=== PATIENT | male | born 1965 | race Caucasian/White ===

== ENCOUNTER 2018-06-14 02:53 | Emergency (ER) | payer BC ==
[2018-06-14] MEDS ORDERED: METHYLPREDNISOLONE 125 MG INJ ONE (03:25)
[2018-06-14] MEDS ORDERED: FAMOTIDINE 20 MG/2 ML VIAL IV ONE (03:25)
--- NOTE | 2018-06-14 06:07 | ER ---
Nurse's Notes [facility] Name: Martin Sneed Age: 52 yrs Sex: Male : 1965 Arrival Date: 06/14/2018 Time: 02:54 Bed 19 Private MD: Breezy Robbins Diagnosis: Angioneurotic edema Presentation: 06/14 03:05 Presenting complaint: Patient states: started this morning the half of my tongue got rr5 swollen and now my entire tongue got swell. no but I'm worried for the swelling will goes down. Transition of care: patient was not received from another setting of care. Onset: The symptoms/episode began/occurred gradually, this morning. Anaphylaxis evaluation, no signs or symptoms of anaphylaxis were noted. Onset of symptoms was June 13, 2018. Risk Assessment: Do you want to hurt yourself or someone else? Patient reports no desire to harm self or others. Initial Sepsis Screen: Does the patient meet any 2 criteria? No. Patient's initial sepsis screen is negative. Does the patient have a suspected source of infection? No. Patient's initial sepsis screen is negative. Care prior to arrival: Medication(s) given: benadryl. 03:05 Method Of Arrival: Ambulatory rr5 03:05 Acuity: MICHAEL 3 rr5 Triage Assessment: 03:09 General: Appears in no apparent distress. uncomfortable, Behavior is calm, cooperative, rr5 appropriate for age. Pain: Denies pain. EENT: swollen tongue. Historical: - Allergies: 03:09 No Known Allergies; rr5 - Home Meds: 03:09 lisinopril 20 mg oral tab [Active]; rr5 - PMHx: 03:09 Hypertension; rr5 - PSHx: 03:09 None; rr5 - Immunization history:: Adult Immunizations up to date. - Social history:: Smoking status: Patient/guardian denies using tobacco, Patient uses alcohol, occasionally. Patient/guardian denies using street drugs. - Ebola Screening: : Patient negative for fever greater than or equal to 101.5 degrees Fahrenheit, and additional compatible Ebola Virus Disease symptoms Patient denies exposure to infectious person Patient denies travel to an Ebola-affected area in the 21 days before illness onset. Screenin:10 Abuse screen: Denies threats or abuse. Denies injuries from another. Nutritional rr5 screening: No deficits noted. Tuberculosis screening: No symptoms or risk factors identified. Fall Risk None identified. Total Dorsey Fall Scale indicates No Risk (0-24 pts). Assessment: 03:05 General: Appears in no apparent distress. comfortable, Behavior is calm, cooperative, rr5 appropriate for age. Pain: Denies pain. Neuro: Level of Consciousness is awake, alert, obeys commands, Oriented to person, place, time, situation, Appropriate for age. Cardiovascular: Capillary refill < 3 seconds Patient's skin is warm and dry. Respiratory: Airway is patent Respiratory effort is even, unlabored. GI: No signs and/or symptoms were reported involving the gastrointestinal system. : No signs and/or symptoms were reported regarding the genitourinary system. EENT: swollen tongue. 03:05 Derm: Skin is intact, Skin temperature is warm. Musculoskeletal: No signs and/or rr5 symptoms reported regarding the musculoskeletal system. 03:05 Respiratory: Breath sounds are clear. rr5 03:17 Reassessment: complaints of feeling light headed after seeing the IV insertion, the rr5 said he is scared to needles. repositioned on bed comfortably, comfort measure done,vital signs taken and recorded. 03:45 Reassessment: Patient appears in no apparent distress at this time. Patient is alert, rr5 oriented x 3, equal unlabored respirations, skin warm/dry/pink. Patient states feeling better. Patient states symptoms have improved. 04:22 Reassessment: Patient appears in no apparent distress at this time. Patient is alert, rr5 oriented x 3, equal unlabored respirations, skin warm/dry/pink. asleep on bed comfortably without complaints made. 05:50 Reassessment: Patient appears in no apparent distress at this time. Patient is alert, rr5 oriented x 3, equal unlabored respirations, skin warm/dry/pink. much better compare before. Patient states feeling better. Patient states symptoms have improved. 06:10 Reassessment: Patient appears in no apparent distress at this time. discharge rr5 instruction given and explained without complaints made. Patient states feeling better. Patient states symptoms have improved. Vital Signs: 03:05 BP 149 / 97; Pulse 103; Resp 18; Temp 99.2; Pulse Ox 96% ; Weight 102.06 kg; Height 6 rr5 ft. (182.88 cm); Pain 0/10; 03:15 BP 112 / 84; Pulse 84; Resp 17; Pulse Ox 98% ; rr5 03:17 BP 105 / 75; Pulse 89; Resp 17; Pulse Ox 99% ; rr5 03:30 BP 121 / 75; Pulse 89; Resp 17; Pulse Ox 100% ; rr5 03:45 BP 122 / 87; Pulse 82; Resp 17; Pulse Ox 98% ; rr5 04:20 BP 133 / 80; Pulse 80; Resp 17; Pulse Ox 96% ; rr5 05:00 BP 125 / 80; Pulse 92; Resp 17; Pulse Ox 98% ; rr5 06:00 BP 141 / 75; Pulse 86; Resp 17; Pulse Ox 99% ; rr5 03:05 Body Mass Index 30.52 (102.06 kg, 182.88 cm) rr5 03:17 complaints of light headed rr5 ED Course: 02:54 Patient arrived in ED. am2 02:54 Breezy Robbins MD is Private Physician. am2 02:56 Gonzalo López MD is Attending Physician. gs 03:00 Patient has correct armband on for positive identification. Placed in gown. Bed in low rr5 position. Call light in reach. Side rails up X2. 03:04 Hilario Melgar RN is Primary Nurse. rr5 03:05 Arm band placed on right wrist. Patient placed in an exam room, on a stretcher, on rr5 pulse oximetry. 03:08 Triage completed. rr5 03:15 Inserted saline lock: 20 gauge in right hand, using aseptic technique. rr5 06:15 No provider procedures requiring assistance completed. IV discontinued, intact, rr5 bleeding controlled, No redness/swelling at site. Pressure dressing applied. Administered Medications: 03:18 Drug: SOLU-Medrol 125 mg Route: IVP; Site: right hand; rr5 06:10 Follow up: Response: No adverse reaction rr5 03:20 Drug: Pepcid 20 mg Route: IVP; Site: right hand; rr5 06:10 Follow up: Response: No adverse reaction rr5 Outcome: 06:07 Discharge ordered by . gs 06:15 Discharged to home ambulatory, with family. rr5 06:15 Condition: stable 06:15 Discharge instructions given to patient, family, Instructed on discharge instructions, follow up and referral plans. medication usage, Demonstrated understanding of instructions, follow-up care, medications, Prescriptions given X 1. 06:15 Patient left the ED. rr5 Signatures: Ophelia Otero Gregory, MD MD gs Roque, Raymond RN RN rr5
--- NOTE | 2018-06-14 06:07 | EDPHYS ---
Physician Documentation [facility] Name: Martin Sneed Age: 52 yrs Sex: Male : 1965 Arrival Date: 06/14/2018 Time: 02:54 Bed 19 Private MD: Breezy Robbins ED Physician Gonzalo López HPI: 06/14 03:30 This 52 yrs old Male presents to ER via Ambulatory with complaints of gs Allergic Reaction, Swelling Of Tongue. 04:28 The patient presents with swelling of the tongue. Onset: The symptoms/episode gs began/occurred 3 hour(s) ago. Associated signs and symptoms: Pertinent negatives: chest pain, dysphagia, shortness of breath. Possible causes: Severity of symptoms: At their worst the symptoms were moderate in the emergency department the symptoms are unchanged. The patient has experienced similar episodes in the past, several times. The patient has not recently seen a physician. Historical: - Allergies: 03:09 No Known Allergies; rr5 - Home Meds: 03:09 lisinopril 20 mg oral tab [Active]; rr5 - PMHx: 03:09 Hypertension; rr5 - PSHx: 03:09 None; rr5 - Immunization history:: Adult Immunizations up to date. - Social history:: Smoking status: Patient/guardian denies using tobacco, Patient uses alcohol, occasionally. Patient/guardian denies using street drugs. - Ebola Screening: : Patient negative for fever greater than or equal to 101.5 degrees Fahrenheit, and additional compatible Ebola Virus Disease symptoms Patient denies exposure to infectious person Patient denies travel to an Ebola-affected area in the 21 days before illness onset. ROS: 04:28 All other systems are negative. gs Exam: 04:28 Head/Face: Normocephalic, atraumatic. Eyes: Pupils equal round and reactive to light, gs extra-ocular motions intact. Lids and lashes normal. Conjunctiva and sclera are non-icteric and not injected. Cornea within normal limits. Periorbital areas with no swelling, redness, or edema. Neck: Trachea midline, no thyromegaly or masses palpated, and no cervical lymphadenopathy. Supple, full range of motion without nuchal rigidity, or vertebral point tenderness. No Meningismus. Chest/axilla: Normal chest wall appearance and motion. Nontender with no deformity. No lesions are appreciated. Cardiovascular: Regular rate and rhythm with a normal S1 and S2. No gallops, murmurs, or rubs. Normal PMI, no JVD. No pulse deficits. Respiratory: Lungs have equal breath sounds bilaterally, clear to auscultation and percussion. No rales, rhonchi or wheezes noted. No increased work of breathing, no retractions or nasal flaring. Abdomen/GI: Soft, non-tender, with normal bowel sounds. No distension or tympany. No guarding or rebound. No evidence of tenderness throughout. Back: No spinal tenderness. No costovertebral tenderness. Full range of motion. Skin: Warm, dry with normal turgor. Normal color with no rashes, no lesions, and no evidence of cellulitis. MS/ Extremity: Pulses equal, no cyanosis. Neurovascular intact. Full, normal range of motion. Neuro: Awake and alert, GCS 15, oriented to person, place, time, and situation. Cranial nerves II-XII grossly intact. Motor strength 5/5 in all extremities. Sensory grossly intact. Cerebellar exam normal. Normal gait. 04:28 Constitutional: The patient appears in no acute distress, alert, awake. 04:28 ENT: Mouth: Tongue: is swollen, mild. Vital Signs: 03:05 BP 149 / 97; Pulse 103; Resp 18; Temp 99.2; Pulse Ox 96% ; Weight 102.06 kg; Height 6 rr5 ft. (182.88 cm); Pain 0/10; 03:15 BP 112 / 84; Pulse 84; Resp 17; Pulse Ox 98% ; rr5 03:17 BP 105 / 75; Pulse 89; Resp 17; Pulse Ox 99% ; rr5 03:30 BP 121 / 75; Pulse 89; Resp 17; Pulse Ox 100% ; rr5 03:45 BP 122 / 87; Pulse 82; Resp 17; Pulse Ox 98% ; rr5 04:20 BP 133 / 80; Pulse 80; Resp 17; Pulse Ox 96% ; rr5 05:00 BP 125 / 80; Pulse 92; Resp 17; Pulse Ox 98% ; rr5 06:00 BP 141 / 75; Pulse 86; Resp 17; Pulse Ox 99% ; rr5 03:05 Body Mass Index 30.52 (102.06 kg, 182.88 cm) rr5 03:17 complaints of light headed rr5 MDM: 03:01 Patient medically screened. gs 04:28 Differential diagnosis: angioedema, bronchospasm, non IgE mediated drug reaction. Data gs reviewed: vital signs, nurses notes. Response to treatment: the patient's symptoms have markedly improved after treatment, swelling decreased, pt states not from lisinopril many reactions same when not taking lisinopril for an extended period of time. 06:06 Counseling: I had a detailed discussion with the patient and/or guardian regarding: the gs historical points, exam findings, and any diagnostic results supporting the discharge/admit diagnosis, the need for outpatient follow up, to return to the emergency department if symptoms worsen or persist or if there are any questions or concerns that arise at home. 06:08 ED course: reexamined minimal change doesn't want to stay for observation, no airway gs obstruction. Administered Medications: 03:18 Drug: SOLU-Medrol 125 mg Route: IVP; Site: right hand; rr5 06:10 Follow up: Response: No adverse reaction rr5 03:20 Drug: Pepcid 20 mg Route: IVP; Site: right hand; rr5 06:10 Follow up: Response: No adverse reaction rr5 Disposition: 06/14/18 06:07 Discharged to Home. Impression: Angioneurotic edema. - Condition is Stable. - Discharge Instructions: Angioedema, [id number]. - Prescriptions for Prednisone 20 mg Oral Tablet - take 1 tablet by ORAL route once daily for 5 days; 5 tablet. - Medication Reconciliation Form, Thank You Letter, Antibiotic Education, Prescription Opioid Use form. - Follow up: Private Physician; When: 2 - 3 days; Reason: Re-evaluation by your physician. Signatures: Gonzalo López MD MD Hilario Melgar RN RN rr5 Corrections: (The following items were deleted from the chart) 06:15 06:07 06/14/2018 06:07 Discharged to Home. Impression: Angioneurotic edema. Condition rr5 is Stable. Forms are Medication Reconciliation Form, Thank You Letter, Antibiotic Education, Prescription Opioid Use. Follow up: Private Physician; When: 2 - 3 days; Reason: Re-evaluation by your physician. gs
== END 2018-06-14 06:15 | disposition home or self-care (01) ==
LOC: ER 02:53
DX: T78.3XXA Angioneurotic edema, initial encounter (principal); X58.XXXA Exposure to other specified factors, initial encounter; I10 Essential (primary) hypertension
CPT/HCPCS: 96374; 96375; 99284; J2930